=== PATIENT | male | born 1945 | race Caucasian/White ===

== ENCOUNTER → 2017-03-15 | Outpatient (CLI) | payer MEDICARE, OTHER ==
--- NOTE | 2017-03-15 15:33 | RADRPT ---
EXAM DATE/TIME: 03/15/2017 13:24 [place] COMPARISON: No previous studies available for comparison. INDICATIONS : Patient states diagnosed with pneumonia two weeks ago. Patient has continued to have a cough and shor t of breath. MEDICAL HISTORY : None. SURGICAL HISTORY : None. ENCOUNTER: Initial ACUITY: 2 weeks PAIN SCORE: 0/10 LOCATION: Bilateral chest FINDINGS: Coarse interstitial changes are seen in both lungs, worse in the base is. There is no alveolar consolidation or pneumothorax. There is mild hyperinflation without failure. CONCLUSION: Persistent coarse parenchymal changes worse in the bases without consolidation. No prior films for c omparison. Bayron Camejo MD FACR on March 15, 2017 at 15:29 Board Certified Radiologist. This report was verified electronically.
== END ==
LOC: HRAD 13:09
DX: J18.8 Other pneumonia, unspecified organism (principal); J47.9 Bronchiectasis, uncomplicated
CPT/HCPCS: 71020

== ENCOUNTER → 2017-05-10 | Outpatient (CLI) | payer MEDICARE, OTHER ==
--- NOTE | 2017-05-26 10:02 | RSPPFT ---
DATE OF PROCEDURE: 05/10/17 COMMENTS: VOLUMES DYNAMIC: FVC and FEV1 mildly reduced. STATIC: TLC mildly reduced, FRC and RV normal. FLOWS: FEV1% normal; FEF 25-75 moderately reduced. DIFFUSION: Normal. FLOW VOLUME LOOP: Restrictive configuration with terminal airflow obstruction. IMPRESSION: Mild restrictive ventilatory defect with mild to moderate terminal airflow obstruction and increased airways resistance. No significant improvement post-bronchodilator. Diffusion capacity is normal.
== END ==
LOC: HRSP 09:52
PROVIDERS: ATTEND Internal Medicine
DX: J44.9 Chronic obstructive pulmonary disease, unspecified (principal)
CPT/HCPCS: 94060; 94620; 94726; 94729